=== PATIENT | male | born 1970 | race Two or more races ===

== ENCOUNTER 2023-06-11 07:07 | Day surgery (SDC) | payer BC ==
[~2023-06-11 07:07] MED LIST: Lactated Ringers 1,000 ML IV SCH
[2023-06-11] MEDS ORDERED: propofoL 50 ML ONE (08:50)
[2023-06-11] MEDS ORDERED: dexmedeTOMIDine HCl 200 MCG/2 ML SDV ONE (09:15)
[2023-06-11] MEDS ORDERED: Propofol 200 MG/20 ML SDV ONE ×2 (09:35→09:48)
[2023-06-11] MEDS ORDERED: Lactated Ringers 1,000 ML IV SCH (10:15)
== END 2023-06-11 10:35 | disposition home or self-care (01) ==
LOC: MW.SDS 07:07
PROVIDERS: ATTEND Surgery
DX: K29.50 Unspecified chronic gastritis without bleeding (principal); E11.9 Type 2 diabetes mellitus without complications; E78.5 Hyperlipidemia, unspecified; K42.9 Umbilical hernia without obstruction or gangrene; L72.0 Epidermal cyst; M62.08 Separation of muscle (nontraumatic), other site; K92.1 Melena; R12 Heartburn; Z79.899 Other long term (current) drug therapy; Z91.02 Food additives allergy status
CPT/HCPCS: 43239; 45378; 82947; J2704; J7120; 00813; J3490

== ENCOUNTER 2023-07-05 17:10 | Emergency (ER) | payer BC ==
[2023-07-05 17:53] LABS: BASE EXCESS VENOUS 0.9 (-2.0-3.0); PH,VENOUS 7.41 (7.31-7.41)
[2023-07-05 17:54] LABS: BASOPHILS ABSOLUTE AUTO 0.04 K/uL (0.00-0.20); BASOPHILS PERCENT AUTO 0.4 % (0.0-1.0); EOSINOPHILS ABSOLUTE AUTO 0.17 K/uL (0.00-0.45); EOSINOPHILS PERCENT AUTO 1.8 % (0.0-6.0); HEMATOCRIT 42.5 % (42.0-52.0); IMMATURE GRAN ABSOLUTE AUTO 0.01 K/uL (0.00-0.05); IMMATURE GRAN PERCENT AUTO 0.1 % (0.0-0.4); LYMPHOCYTES ABSOLUTE AUTO 2.21 K/uL (1.00-4.80); LYMPHOCYTES PERCENT AUTO 23.4 % (24.0-44.0); MEAN CORPUSCULAR HEMOGLOBIN 30.9 pg (28.0-32.0); MEAN CORPUSCULAR HGB CONC 37.6 g/dL (32.0-36.0); MEAN PLATELET VOLUME 11.1 fL (9.4-12.4); MONOCYTES ABSOLUTE AUTO 0.98 K/uL (0.00-0.80); MONOCYTES PERCENT AUTO 10.4 % (0.0-8.0); NEUTROPHILS ABSOLUTE AUTO 6.04 K/uL (1.80-7.70); NEUTROPHILS PERCENT AUTO 63.9 % (41.0-71.0); PLATELET COUNT,PLT 230 K/uL (150-400); RED BLOOD CELL COUNT 5.18 M/uL (4.52-5.90); WHITE BLOOD CELL COUNT,WBC 9.45 K/uL (3.9-11.3)
[2023-07-05] MEDS: Sodium Chloride 0.9% 2.5 ML Syringe FLUSH PRN (18:04)
[2023-07-05] MEDS: Lactated Ringers 1,000 ML IV STA ×2 (18:04→19:12)
[2023-07-05] MEDS: Sodium Chloride 0.9% 10 ML Syringe FLUSH PRN (18:04)
[2023-07-05 18:15] LABS: HEMOGLOBIN A1C >14.0 %
[2023-07-05 18:41] LABS: CREATININE 1.1 mg/dL (0.8-1.3); EST CRCL DRUG DOSING (CG) 95.35 mL/min; POTASSIUM,K 4.3 mmol/L (3.5-5.1)
[2023-07-05 18:42] LABS: A/G RATIO 0.8 (0.9-1.6); ALBUMIN 3.3 g/dL (3.4-5.0); BILIRUBIN TOTAL 0.9 mg/dL (0.2-1.0); CALCIUM 9.3 mg/dL (8.5-10.1); MAGNESIUM 2.1 mg/dL (1.8-2.4); PROTEIN TOTAL,TP 7.5 g/dL (6.4-8.2)
[2023-07-05] MEDS: Insulin Glargine,Hum.Rec.Anlog 100 UNIT/ML 3 ML Pen SUBCUT STA (19:20)
== END 2023-07-05 21:20 | disposition home or self-care (01) ==
LOC: MW.ED 17:10
DX: E11.65 Type 2 diabetes mellitus with hyperglycemia (principal); Z79.84 Long term (current) use of oral hypoglycemic drugs; Z79.4 Long term (current) use of insulin; Z91.018 Allergy to other foods
CPT/HCPCS: 36415; 71046; 80053; 82009; 82803; 82947; 83036; 83690; 83735; 84484; 85025; 96360; 96361; 99285; A9270; J3490; J7120; 93010; 99283

== ENCOUNTER 2023-11-29 21:50 | Emergency (ER) | payer BC | END 2023-11-30 00:56 | disposition left against medical advice (07) | LOC: MW.ED 21:50 | DX: Z53.21 Procedure and treatment not carried out due to patient leaving prior to being seen by health care provider (principal) ==